=== PATIENT | male | born 1990 | race Asian ===

== ENCOUNTER 2022-05-20 17:14 | Inpatient (IN) | payer BC, SELFPAY ==
[~2022-05-20 17:14] MED LIST: Iopamidol-370 76% 500 ML 1 ML ONE
[2022-05-20 17:57] LABS: #Basophils 0.1 thou/uL (0.0-0.2); #Eosinphils 0.1 thou/uL (0.0-0.7); #Lymphocytes 3.1 thou/uL (1.20-3.40); #Monocytes 0.7 thou/uL (0.11-0.59); #Neutrophils 11.5 thou/uL (1.40-6.50); %Basophils 0.8 % (0.0-1.0); %Eosinophils 0.7 % (0.0-10.0); %Monocytes 4.4 % (0.0-10.0); Hemoglobin 15.1 g/dL (14.0-18.0); Mean Corpuscular HGB CONC 36.2 g/dL (32.0-36.0); Mean Corpuscular Hemoglobin 29.5 pg (27.0-31.0); Mean Corpuscular Volume 81.4 fl (78.0-98.0); Mean Platelet Volume 9.5 fL (7.4-10.4); Platelet Count 275 10x3/uL (130-400); RBC Distribution Width 12.4 % (11.5-14.5); Red Blood Cell (RBC) Count 5.13 mill/uL (4.70-6.10); White Blood Cell (WBC) Count 15.5 10x3/uL (4.8-10.8)
[2022-05-20 18:26] LABS: ALT (SGPT) 21 U/L (8-55); AST (SGOT) 17 U/L (5-34); Albumin 4.3 g/dL (3.5-5.0); Alkaline Phosphatase 96 U/L (40-110); Anion Gap 18 mmol/L (10-20); BUN (Urea Nitrogen) 10 mg/dL (8.9-20.6); Bilirubin, Total 0.8 mg/dL (0.2-1.2); Calc. Creatinine Clearance 0 mL/min (70-130); Calcium 9.9 mg/dL (7.8-10.44); Carbon Dioxide 20 mmol/L (22-29); Chloride 96 mmol/L (98-107); Estimated GFR 75; Globulin 5.3 g/dL (2.4-3.5); Phosphorus 2.7 mg/dL (2.3-4.7); Potassium 4.3 mmol/L (3.5-5.1); Protein, Total 9.6 g/dL (6.0-8.3); Sodium 130 mmol/L (136-145)
[2022-05-20 18:33] LABS: Glucose 455 mg/dL (70-105)
[2022-05-20] MEDS ORDERED: Insulin Regular 300 UNITS/3 ML VIAL ONE (19:40)
[2022-05-20 20:48] LABS: Bilirubin Negative (Negative); Blood, Urine Negative (Negative); Clarity Clear (Clear); Glucose, Urine (Dipstick) Greater than 1000 mg/dL (Negative); Ketone, Urine 20 mg/dL (Negative); Leukocyte Negative Leu/uL (Negative); Nitrite Negative (Negative); Protein, Urine (Dipstick) 10 mg/dL (Neg-Trace); Specific Gravity, Urine 1.038 (1.002-1.036); Urobilinogen Normal mg/dL (Less than 2)
[2022-05-20 23:08] VITALS: BP 118/74; BMI 32.1
[2022-05-20] MEDS ORDERED: Dextrose 50% Abboject 50 ML SYRINGE SLOW IVP PRN (23:35)
[2022-05-20] MEDS ORDERED: NS 0.9% w/ 20 MEQ KCL 1,000 ML IV PRN ×2 (23:35)
[2022-05-20] MEDS ORDERED: Dextrose 5 %-0.45 % NaCl 1,000 ML IV PRN (23:35)
[2022-05-20] MEDS ORDERED: Electrolyte Replacement Protocol 1 EACH IVPB PRN (23:35)
[2022-05-20] MEDS ORDERED: Sodium Chloride 0.9% 1,000 ML IV PRN ×4 (23:35)
[2022-05-21] MEDS: D5 1/2 NS w/20 mEq KCL 1,000 ML IV PRN ×6 (01:00→20:25)
[2022-05-21] MEDS: HUMULIN R 100 UNITS in Sodium Chloride 0.9% 100 ML IVPB SCH ×2 (01:00→12:21)
[2022-05-21 01:49] LABS: Calcium 9.4 mg/dL (7.8-10.44); Chloride 99 mmol/L (98-107); Potassium 4.8 mmol/L (3.5-5.1); Sodium 131 mmol/L (136-145)
[2022-05-21 01:50] LABS: Glucose 250 mg/dL (70-105)
[2022-05-21 01:51] LABS: Carbon Dioxide 14 mmol/L (22-29)
[2022-05-21 01:52] LABS: Anion Gap 23 mmol/L (10-20)
[2022-05-21 01:53] LABS: Calc. Creatinine Clearance 123 mL/min (70-130); Estimated GFR 91; Phosphorus 2.3 mg/dL (2.3-4.7)
[2022-05-21 01:54] LABS: BUN (Urea Nitrogen) 9 mg/dL (8.9-20.6)
[2022-05-21 01:55] LABS: Magnesium 2.1 mg/dL (1.6-2.6)
[2022-05-21] MEDS ORDERED: Magnesium 2 GM/50 ML(in water) 2 GM in Premix Bag 1 BAG IVPB SCH (08:00)
[2022-05-21 09:02] LABS: Glucose 206 mg/dL (70-105)
[2022-05-21 09:05] LABS: Hemoglobin A1c Greater than 14.0 % (4.0-6.0)
[2022-05-21 09:27] LABS: BUN (Urea Nitrogen) 8 mg/dL (8.9-20.6)
[2022-05-21 09:33] LABS: Anion Gap 16 mmol/L (10-20); Calc. Creatinine Clearance 159 mL/min (70-130); Calcium 8.6 mg/dL (7.8-10.44); Carbon Dioxide 18 mmol/L (22-29); Chloride 103 mmol/L (98-107); Estimated GFR 118; Glucose 201 mg/dL (70-105); Potassium 3.7 mmol/L (3.5-5.1); Sodium 133 mmol/L (136-145)
[2022-05-22] MEDS: D5 1/2 NS w/20 mEq KCL 1,000 ML IV PRN ×2 (00:45→08:46)
[2022-05-22 04:47] LABS: Anion Gap 13 mmol/L (10-20); BUN (Urea Nitrogen) Less than 4 mg/dL (8.9-20.6); Calc. Creatinine Clearance 159 mL/min (70-130); Calcium 8.6 mg/dL (7.8-10.44); Carbon Dioxide 22 mmol/L (22-29); Chloride 102 mmol/L (98-107); Estimated GFR 118; Glucose 247 mg/dL (70-105); Potassium 3.5 mmol/L (3.5-5.1); Sodium 133 mmol/L (136-145)
[2022-05-22] MEDS ORDERED: Potassium Chloride 20 MEQ TAB PO SCH (08:00)
[2022-05-22] MEDS: Fenofibrate 48 MG TAB PO SCH (08:54)
[2022-05-22] MEDS ORDERED: HumaLOG 300 UNITS/3 ML VIAL SC PRN (09:28)
[2022-05-22] MEDS ORDERED: Dextrose 5% in Water 1,000 ML IV PRN (09:28)
[2022-05-22] MEDS ORDERED: Dextrose 50% Abboject 50 ML SYRINGE SLOW IVP PRN (09:28)
[2022-05-22] MEDS ORDERED: Insulin Glargine 30 UNITS/0.3 ML VIAL SC SCH ×2 (09:30→21:00)
[2022-05-22] MEDS: HumaLOG 300 UNITS/3 ML VIAL SC PRN ×2 (13:59→19:06)
[2022-05-23] MEDS: HumaLOG 300 UNITS/3 ML VIAL SC PRN ×2 (06:03→12:15)
[2022-05-23 07:23] LABS: Anion Gap 19 mmol/L (10-20); BUN (Urea Nitrogen) 7 mg/dL (8.9-20.6); Calc. Creatinine Clearance 126 mL/min (70-130); Carbon Dioxide 19 mmol/L (22-29); Cardiac Risk 28.7 (Less than 4.5); Chloride 99 mmol/L (98-107); Cholesterol 632 mg/dl (< 200 Desired); Estimated GFR 95; Glucose 238 mg/dL (70-105); HDL Cholesterol 22 mg/dL (>60 Neg Risk); Potassium 4.2 mmol/L (3.5-5.1); Sodium 133 mmol/L (136-145); Triglycerides 722 mg/dL (Less than 150)
[2022-05-23] MEDS: Fenofibrate 48 MG TAB PO SCH (08:28)
[2022-05-23] MEDS ORDERED: Insulin Glargine 30 UNITS/0.3 ML VIAL SC SCH ×2 (09:00→21:00)
[2022-05-23] MEDS ORDERED: FLU VACC QS2022-23(6MOS UP)/PF 60 MCG/0.5 ML SYRINGE IM ONE (09:00)
[2022-05-23] MEDS ORDERED: Atorvastatin Calcium 40 MG TAB PO SCH (10:30)
[2022-05-24 04:28] LABS: Anion Gap 17 mmol/L (10-20); BUN (Urea Nitrogen) 11 mg/dL (8.9-20.6); Calc. Creatinine Clearance 126 mL/min (70-130); Carbon Dioxide 23 mmol/L (22-29); Chloride 98 mmol/L (98-107); Estimated GFR 95; Glucose 271 mg/dL (70-105); Potassium 4.1 mmol/L (3.5-5.1); Sodium 134 mmol/L (136-145)
[2022-05-24] MEDS: HumaLOG 300 UNITS/3 ML VIAL SC PRN ×2 (06:18→15:06)
[2022-05-24] MEDS: Fenofibrate 48 MG TAB PO SCH (09:00)
[2022-05-24] MEDS ORDERED: Insulin Glargine 30 UNITS/0.3 ML VIAL SC SCH (09:00)
[2022-05-24 16:57] VITALS: TEMP 98.3
== END 2022-05-24 17:15 | disposition home or self-care (01) | DRG 438 ==
LOC: ERS 17:14 → T4-A 21:17 → OBSVTOIN 23:35 → IMCU/EMU 05-21 00:38
PROVIDERS: ADMIT Student in an Organized Health Care Education/Training Program; ATTEND Family Medicine
DX: K85.90 Acute pancreatitis without necrosis or infection, unspecified (principal); E11.10 Type 2 diabetes mellitus with ketoacidosis without coma; E87.1 Hypo-osmolality and hyponatremia; N17.9 Acute kidney failure, unspecified; Z20.822 Contact with and (suspected) exposure to COVID-19; K21.9 Gastro-esophageal reflux disease without esophagitis; E78.00 Pure hypercholesterolemia, unspecified; K76.0 Fatty (change of) liver, not elsewhere classified
CPT/HCPCS: 36415; 36416; 74177; 76705; 80048; 80053; 80061; 81003; 82010; 83036; 83605; 83690; 83735; 84100; 84478; 85025; 96360; G0378; J1815; J3475; J3480; J3490; Q9967; U0003; U0005